=== PATIENT | male | born 1960 | race Caucasian/White ===

== ENCOUNTER → 2020-08-14 12:08 | Outpatient (CLI) | payer MEDICARE, SELFPAY ==
--- NOTE | ~2020-08-14 | MR_ITS ---
EXAMINATION: MR lumbar spine wo/w con DATE: 08/14/2020 13:30 INDICATION: Chronic low back pain. TECHNIQUE: Magnetic resonance imaging (MRI) of the lumbar spine was performed without and with 20 mL MultiHance intravenous contrast. Sequences included sagittal T2-weighted FSE, sagittal STIR FSE, and sagittal and axial T1-weighted FSE. Postcontrast sequences included axial T2-weighted FSE and axial a nd sagittal T1-weighted FS FSE. COMPARISON: Lumbar spine MRI 01/01/2019 FINDINGS: There is 7 degrees dextrocurvature of thoracic lumbar spine. There are changes of anterior and posterior fusion procedures from L4 to S1 with discectomies, interbody devices, and pedicle screw s. There are Schmorl's nodes at all levels. There is mildly decreased disc height at L2-L3. The dista l spinal cord signal intensity is normal. The conus medullaris is at L1. The following disc levels ar e specifically discussed: L1-L2: The disc does not extend beyond the endplate margin. There is mild bilateral facet joint osteo arthritis. There is no neural foraminal stenosis. There is no central canal stenosis. L2-L3: The disc is bulging and has an annular fissure. There is mild bilateral facet joint osteoarthr itis. There is mild bilateral neural foraminal stenosis. There is mild central canal stenosis. L3-L4: The disc does not extend beyond the endplate margin. There is mild bilateral facet joint osteo arthritis. There is no neural foraminal stenosis. There is no central canal stenosis. L4-L5: There is mild right facet joint hypertrophy. There is mild right neural foraminal stenosis. Th ere is no central canal stenosis. L5-S1: There is mild right facet joint hypertrophy. There is mild bilateral neural foraminal stenosis . There is no central canal stenosis. IMPRESSION: 1. Mild lumbar spondylosis, stable from 01/01/2019. 2. Anterior and posterior fusion procedures from L4 to S1. Reviewed, dictated and finalized at location A.
[2020-08-14 13:05] LABS: Estimated Glomerular Filt Rate 52
== END ==
DX: M47.27 Other spondylosis with radiculopathy, lumbosacral region (principal); M96.1 Postlaminectomy syndrome, not elsewhere classified; M48.07 Spinal stenosis, lumbosacral region; Z98.1 Arthrodesis status
CPT/HCPCS: 72158; A9577

== ENCOUNTER 2022-03-16 00:48 | Day surgery (SDC) | payer MEDICARE, SELFPAY ==
[2022-03-08 14:27] VITALS: BMI 36.2
[2022-03-16 10:03] VITALS: BP 147/89; PULSE 93; RESP 18; TEMP 36; O2SAT 100
[2022-03-16] MEDS: LACTATED RINGERS 1,000 ML 150 ML IV CONT (10:08)
--- NOTE | 2022-03-16 10:16 | WPDANESEPPF ---
Anes - Initial Pre Proc Eval Procedure: Operation Date: 03/16/22 11:15 Proposed Procedures p Colonoscopy - Ernst Ness MD s Possible [facility] Hemorrhoid Treatment - Ernst Ness MD Date/Time: 03/16/22 10:16 Surgeon: Ernst Ness MD Pre Op Diagnosis: Positive hemoccult Patient Data Age: 61 Gender: M Height: 1.88 m Weight: 128.4 kg Last Vital Signs Temp 36.0 C L 03/16/22 10:03 Pulse 93 03/16/22 10:03 Resp 18 03/16/22 10:03 BP 147/89 H 03/16/22 10:03 Pulse Ox 100 03/16/22 10:03 O2 Del Method Room Air 03/16/22 10:03 Allergies Allergy/AdvReac Type Severity Reaction Status Date / Time amoxicillin Allergy Unknown Hepatotoxic Verified 03/16/22 10:02 ity clavulanic acid Allergy Other Verified 03/16/22 10:02 [From Augmentin] remdesivir Allergy Other Verified 03/16/22 10:02 Penicillins AdvReac Severe Diarrhea Verified 03/16/22 10:02 Home Medications Medication Instructions Recorded Confirmed Type hydrocodone 5 mg-acetaminophen 325 1 tablet PO Q8H PRN Pain 04/05/19 03/16/22 History mg tablet albuterol sulfate 90 mcg/actuation 2 puff inhalation Q4H PRN 02/15/22 03/16/22 Rx aerosol inhaler (Ventolin HFA) shortness of breath or wheezing, cough #6.7 grams trazodone 50 mg tablet 50 mg PO QHS PRN Sleep 02/15/22 03/16/22 History Patient hx anesthesia problems: none Family hx anesthesia problems: none Results Review: All pre-operative results and documents have been reviewed as part of the pre-operative evaluation. [facility] Past Medical History Medical History Avascular necrosis of bone of left hip Chronic pain Dyslipidemia GERD (gastroesophageal reflux disease) Lumbar back pain with radiculopathy affecting left lower extremity Family History Family History Other Family history of malignant neoplasm Social History Social History Smoking packs per day: 2 Smoking cigarettes per day: 40.0 Years smoked: 20 Smoking pack-years: 40.00 Smoking status: Former smoker Tobacco type: cigarettes Second hand tobacco smoke exposure: No Smoking end date: 03/27/04 Alcohol intake: never Substance use: never Substance use type: does not use Living arrangements: with family Gender identity (if verbalized by the patient): Male Spiritual care concerns: No Anes - Eval Final PreProcedure Day of Procedure 03/16/22 10:16 Patient weight: obese Heart: regular rate and rhythm Lungs: decreased breath sounds Airway: Mallampati scale class II Neurological: alert and oriented Last oral intake: >/= 8 hours ASA classification: III Emergent: no Anesthetic plan: proceed Anesthesia type and monitoring: general GIVS and standard monitoring Results Review: All pre-operative results and documents have been reviewed as part of the pre-operative evaluation. Informed Consent: The patient's anesthetic plan and its attendant risks and benefits were discussed with the patient/family/POA. Questions were solicited and answers provided to the satisfaction of the patient/family/POA.
--- NOTE | 2022-03-16 10:22 | PM.HPGS ---
History of Present Illness History of Present Illness Consent: Risks, benefits, and alternatives have been discussed and questions answered. Patient agrees to proceed with procedure. Chief complaint: Positive hemoccult Narrative: Trae Chau is a 61 year old male who never had a colonoscopy and had a positive occult blood that was done because insurance purpose, he also noted hemorrhoids. Review of Systems Constitutional: Constitutional: Denies headache(s) and Denies weakness Eyes: Eyes: Denies blurry vision ENT: Reports Normal hearing present, Denies headache(s) and Denies neck pain Cardiovascular: Cardiovascular: Denies chest pain and Denies dyspnea Respiratory: Respiratory: Denies dyspnea Gastrointestinal: Gastrointestinal: Reports no additional gastrointestinal complaints Genitourinary: Genitourinary: Denies dysuria Musculoskeletal: Musculoskeletal: Denies neck pain Integumentary/Breasts: Skin/Breast: Denies dry skin Neurologic: Reports Normal hearing present, Denies headache(s) and Denies weakness Psychiatric: Psychiatric: Denies anxiety Endocrine: Endocrine: Denies change in body appearance Hematologic/Lymphatic: Hematologic/Lymphatic: Denies easy bleeding Allergic/Immunologic: Allergic/Immunologic: Denies urticaria PMFSH Past Medical History Medical History (Updated 03/16/22 @ 10:23 by Ernst Ness MD) Avascular necrosis of bone of left hip Chronic pain Dyslipidemia GERD (gastroesophageal reflux disease) Hemorrhoid Lumbar back pain with radiculopathy affecting left lower extremity Family History Family History Other Family history of malignant neoplasm Social History Social History Smoking packs per day: 2 Smoking cigarettes per day: 40.0 Years smoked: 20 Smoking pack-years: 40.00 Smoking status: Former smoker Tobacco type: cigarettes Second hand tobacco smoke exposure: No Smoking end date: 03/27/04 Alcohol intake: never Substance use: never Substance use type: does not use Living arrangements: with family Gender identity (if verbalized by the patient): Male Spiritual care concerns: No Meds Home Medications and Allergies Home Medications Medication Instructions Recorded Confirmed Type hydrocodone 5 mg-acetaminophen 325 1 tablet PO Q8H PRN Pain 04/05/19 03/16/22 History mg tablet albuterol sulfate 90 mcg/actuation 2 puff inhalation Q4H PRN 02/15/22 03/16/22 Rx aerosol inhaler (Ventolin HFA) shortness of breath or wheezing, cough #6.7 grams trazodone 50 mg tablet 50 mg PO QHS PRN Sleep 02/15/22 03/16/22 History Allergies Allergy/AdvReac Type Severity Reaction Status Date / Time amoxicillin Allergy Unknown Hepatotoxic Verified 03/16/22 10:02 ity clavulanic acid Allergy Other Verified 03/16/22 10:02 [From Augmentin] remdesivir Allergy Other Verified 03/16/22 10:02 Penicillins AdvReac Severe Diarrhea Verified 03/16/22 10:02 Vital Signs Vital Signs - 24 hr 03/16/22 10:03 Temperature 96.8 F L Pulse Rate 93 Respiratory Rate 18 Blood Pressure 147/89 H Pulse Oximetry 100 Oxygen Delivery Room Air Exam Const: General: comfortable and no acute distress HENMT: Face/Nose/Sinus: Normal nares present Eyes: General: appearance normal, both eyes and all related structures Neck: Neck: no JVD Resp: Auscultation: clear to auscultation bilaterally Cardio: Rate: regular rate Rhythm: regular rhythm GI: Inspection: non-distended GI Palp: Yes Soft to palpation Skin: General skin exam: normal color Neuro: General: gait normal Speech: normal speech Extrem: General: normal to inspection Psych: Mental Status: mental status grossly normal Assessment and Plan Assessment and plan (1) Positive occult stool blood test: Code(s): R19.5 - Other fecal abnormalities Stat
[2022-03-16 10:49] VITALS: BP 112/71; PULSE 80; RESP 25; O2SAT 96
[2022-03-16 10:59] VITALS: BP 104/68; PULSE 78; RESP 20; O2SAT 96
[2022-03-16 11:09] VITALS: BP 112/68; PULSE 75; RESP 20; O2SAT 97
== END 2022-03-16 11:19 | disposition home or self-care (01) ==
PROVIDERS: PCP Physician Assistant Medical; Visit Provider Internal Medicine Gastroenterology
PROC: 0DJD8ZZ Inspection of Lower Intestinal Tract, Via Natural or Artificial Opening Endoscopic (ICD-10-PCS; CPT 45378; principal; 2022-03-16 11:15)
DX: R19.5 Other fecal abnormalities (principal); K57.30 Diverticulosis of large intestine without perforation or abscess without bleeding; D12.3 Benign neoplasm of transverse colon; K64.8 Other hemorrhoids; Z79.51 Long term (current) use of inhaled steroids; Z87.891 Personal history of nicotine dependence; E66.9 Obesity, unspecified; Z68.36 Body mass index [BMI] 36.0-36.9, adult
CPT/HCPCS: 45385; 88305; J2704; J7120

== ENCOUNTER → 2022-06-27 09:26 | Outpatient (CLI) | payer MEDICARE, SELFPAY ==
--- NOTE | ~2022-06-27 | MR_ITS ---
EXAMINATION: MR thoracic spine wo con DATE: 06/27/2022 10:33 INDICATION: Postlaminectomy syndrome, not elsewhere classified. Mid to low back pain. TECHNIQUE: Magnetic resonance imaging (MRI) of the thoracic spine was performed without intravenous c ontrast. COMPARISON: None FINDINGS: There is 18 degrees dextroscoliosis of thoracic spine. There are Schmorl's nodes from T3-T4 through T12-L1. Intervertebral disc heights are normal. There is multilevel facet joint osteoarthrit is, severe on the left at T7-T8 and T8-T9. On the left, there is mild neural foraminal stenosis at T7 -T8 and T8-T9. At T2-T3, there is a central extrusion with mild central canal stenosis. At T3-T4, the re is a central extrusion with mild central canal stenosis. The spinal cord signal intensity is vanessa l. The conus medullaris is at L1. IMPRESSION: 1. Mild thoracic spondylosis. 2. Thoracic dextroscoliosis. Reviewed, dictated and finalized at location A.
--- NOTE | ~2022-06-27 | MR_ITS ---
EXAMINATION: MR lumbar spine wo con DATE: 06/27/2022 10:38 INDICATION: Postlaminectomy syndrome, not elsewhere classified. TECHNIQUE: Magnetic resonance imaging (MRI) of the lumbar spine was performed without intravenous con trast. Sequences included sagittal T2-weighted FSE, sagittal T2-weighted FS FSE, sagittal T1-weighted FSE, and axial T2-weighted FSE. COMPARISON: Lumbar spine MRI 08/14/2020 FINDINGS: There is 9 degrees dextrocurvature of thoracolumbar spine. There are changes of anterior an d posterior fusion procedures from L4 to S1 with interbody devices and pedicle screws. Vertebral body heights are normal. There is mildly decreased disc height at L2-L3. The distal spinal cord signal in tensity is normal. The conus medullaris is at L1-L2. The following disc levels are specifically discu ssed: L1-L2: The disc does not extend beyond the endplate margin. There is mild bilateral facet joint osteo arthritis. There is no neural foraminal stenosis. There is no central canal stenosis. L2-L3: The disc is bulging and has an annular fissure. There is moderate bilateral facet joint osteoa rthritis. There is mild bilateral neural foraminal stenosis. There is mild central canal stenosis. L3-L4: The disc does not extend beyond the endplate margin. There is mild bilateral facet joint hyper trophy. There is no neural foraminal stenosis. There is no central canal stenosis. L4-L5: There is mild right facet joint hypertrophy. There is mild right neural foraminal stenosis. Th ere is no central canal stenosis. L5-S1: There is mild bilateral facet joint hypertrophy. There is mild bilateral neural foraminal sten osis. There is no central canal stenosis. IMPRESSION: 1. Mild lumbar spondylosis, stable from 08/14/2020. 2. Anterior and posterior fusion procedures from L4 to S1. Reviewed, dictated and finalized at location A.
== END ==
DX: M96.1 Postlaminectomy syndrome, not elsewhere classified (principal); M47.894 Other spondylosis, thoracic region; M47.896 Other spondylosis, lumbar region; Z98.1 Arthrodesis status
CPT/HCPCS: 72146; 72148